=== PATIENT | female | born 1955 | race Caucasian/White ===

== ENCOUNTER → 2017-05-26 | Outpatient (CLI) | payer OTHER ==
[~2017-05-26] MED LIST: BIAXIN500 MG PO; CALCIUM600 M2; CENTRUM SILVER; CLARITIN10 MG PO; CRESTOR5 MG; DAYPRO600 M1 PO; DIOVAN320 MG; FISH OIL 10001000 MG; LEVOTHYROXIN; LYRICA50 MG; MAGNESIUM250 MG; PRAVASTATIN SOD40 MG PO; ROBAXIN750 MG PO; VITAMIN E
== END | disposition home or self-care (01) ==
LOC: MRI 05-24 08:00
DX: G89.29 Other chronic pain (principal); R51 Headache; R26.89 Other abnormalities of gait and mobility; H93.13 Tinnitus, bilateral; I10 Essential (primary) hypertension

== ENCOUNTER → 2017-06-10 | Outpatient (CLI) | payer OTHER | END | disposition home or self-care (01) | LOC: US 12:42 | DX: R09.89 Other specified symptoms and signs involving the circulatory and respiratory systems (principal) ==

== ENCOUNTER → 2017-06-22 | Outpatient (CLI) | payer OTHER | END | disposition home or self-care (01) | LOC: CARD 14:00 | DX: R06.02 Shortness of breath (principal) ==

== ENCOUNTER → 2018-07-20 | Outpatient (CLI) | payer OTHER | END | disposition home or self-care (01) | LOC: CT 07-12 10:00 → LAB 07:25 → CT 08:00 | DX: J44.9 Chronic obstructive pulmonary disease, unspecified (principal); I25.10 Atherosclerotic heart disease of native coronary artery without angina pectoris ==

== ENCOUNTER → 2019-10-09 | Outpatient (CLI) | payer OTHER, MEDICARE | END | disposition home or self-care (01) | LOC: RESCLI 03:48 | DX: J42 Unspecified chronic bronchitis (principal); C96.6 Unifocal Langerhans-cell histiocytosis; K21.9 Gastro-esophageal reflux disease without esophagitis; E78.5 Hyperlipidemia, unspecified; I10 Essential (primary) hypertension; E03.9 Hypothyroidism, unspecified; Z76.89 Persons encountering health services in other specified circumstances; Z79.899 Other long term (current) drug therapy; Z90.89 Acquired absence of other organs; Z88.0 Allergy status to penicillin ==

== ENCOUNTER → 2020-07-03 | Outpatient (CLI) | payer MEDICARE | END | disposition home or self-care (01) | LOC: RESCLI 02:08 | PROVIDERS: ATTEND Emergency Medicine | DX: J42 Unspecified chronic bronchitis (principal); E03.9 Hypothyroidism, unspecified; I10 Essential (primary) hypertension; K21.9 Gastro-esophageal reflux disease without esophagitis; M54.5 Low back pain; E78.5 Hyperlipidemia, unspecified; J30.2 Other seasonal allergic rhinitis; Z12.31 Encounter for screening mammogram for malignant neoplasm of breast; Z12.4 Encounter for screening for malignant neoplasm of cervix; Z12.11 Encounter for screening for malignant neoplasm of colon; Z00.00 Encounter for general adult medical examination without abnormal findings; Z79.899 Other long term (current) drug therapy; Z98.890 Other specified postprocedural states; Z87.891 Personal history of nicotine dependence; Z88.0 Allergy status to penicillin ==

== ENCOUNTER → 2020-07-31 | Outpatient (CLI) | payer MEDICARE | END | disposition home or self-care (01) | LOC: MAMMO 07-18 10:30 | PROVIDERS: ATTEND Student in an Organized Health Care Education/Training Program | DX: Z12.31 Encounter for screening mammogram for malignant neoplasm of breast (principal) ==

== ENCOUNTER → 2020-10-16 | Outpatient (CLI) | payer MEDICARE | END | disposition home or self-care (01) | LOC: RESCLI 00:23 | PROVIDERS: ATTEND Emergency Medicine | DX: J42 Unspecified chronic bronchitis (principal); E03.9 Hypothyroidism, unspecified; I10 Essential (primary) hypertension; K21.9 Gastro-esophageal reflux disease without esophagitis; J30.2 Other seasonal allergic rhinitis; E78.5 Hyperlipidemia, unspecified; M54.5 Low back pain ==

== ENCOUNTER → 2021-11-03 | Outpatient (CLI) | payer OTHER | END | disposition home or self-care (01) | LOC: RESCLI 11:55 | PROVIDERS: ATTEND Internal Medicine Nephrology | DX: J20.9 Acute bronchitis, unspecified (principal); J42 Unspecified chronic bronchitis; Z79.899 Other long term (current) drug therapy ==

== ENCOUNTER → 2021-11-14 | Outpatient (CLI) | payer OTHER | END | disposition home or self-care (01) | LOC: RESCLI 02:32 | PROVIDERS: ATTEND Internal Medicine | DX: J42 Unspecified chronic bronchitis (principal); E03.9 Hypothyroidism, unspecified; E78.5 Hyperlipidemia, unspecified; I10 Essential (primary) hypertension; M54.59 Other low back pain; J30.2 Other seasonal allergic rhinitis; K21.9 Gastro-esophageal reflux disease without esophagitis; Z88.0 Allergy status to penicillin; Z79.899 Other long term (current) drug therapy ==

== ENCOUNTER → 2022-02-12 | Outpatient (CLI) | payer MEDICARE ==
[2022-02-12 08:41] LABS: HEMATOCRIT 47.5 % (37.0-47.0); MEAN CELL VOLUME 92.1 fl (81.0-99.0); MEAN CORPUSCULAR HGB 29.7 pg (27.0-31.0); MEAN CORPUSCULAR HGB CONC 32.2 g/dl (33.0-37.0); MEAN PLATELET VOLUME 8.4 fl (9.6-12.3); PLATELET COUNT AUTOMATED 423 10*3/uL (130-400); RED BLOOD COUNT 5.16 10*6/uL (4.10-5.10); RED CELL DISTRI WIDTH 12.8 % (0-14.5); WHITE BLOOD COUNT 14.9 10*3/uL (4.8-10.8)
[2022-02-12 09:06] LABS: MANUAL DIFF REFLEX YES
[2022-02-12 09:21] LABS: PLATELET SUFFICIENCY HIGH (NORMAL); TOTAL CELLS COUNTED 100 #CELLS
[2022-02-12 09:25] LABS: BUN 23 mg/dl (7-24); CHLORIDE 102 mmol/L (98-107); POTASSIUM 4.3 mmol/L (3.5-5.1); SGPT/ALT 60 U/L (12-78); SODIUM 136 mmol/L (136-145)
[2022-02-12 09:31] LABS: VITAMIN D, 25-HYDROXY 62.3 ng/mL (30-100)
[2022-02-12 09:37] LABS: ALKALINE PHOSPHATASE 67 U/L (45-117); CHOLESTEROL 176 mg/dL (<200); CREATININE 0.74 mg/dL (0.55-1.02); LDL CHOLESTEROL 97 mg/dL (9-159); SGOT/AST 19 IU/L (3-35); TOTAL PROTEIN 8.1 gm/dL (6.4-8.2); TRIGLYCERIDES 133 mg/dl (<150)
== END | disposition home or self-care (01) ==
LOC: LAB 07:54
PROVIDERS: Internal Medicine; ATTEND Internal Medicine
DX: E03.9 Hypothyroidism, unspecified (principal); E78.5 Hyperlipidemia, unspecified; Z79.899 Other long term (current) drug therapy

== ENCOUNTER → 2022-03-20 | Outpatient (CLI) | payer MEDICARE | END | disposition home or self-care (01) | LOC: RESCLI 00:42 | PROVIDERS: ATTEND Internal Medicine | DX: C96.6 Unifocal Langerhans-cell histiocytosis (principal); K21.9 Gastro-esophageal reflux disease without esophagitis; I10 Essential (primary) hypertension; E78.5 Hyperlipidemia, unspecified; J44.9 Chronic obstructive pulmonary disease, unspecified; E03.9 Hypothyroidism, unspecified; J30.2 Other seasonal allergic rhinitis; G89.29 Other chronic pain; Z79.899 Other long term (current) drug therapy; Z98.890 Other specified postprocedural states; Z88.0 Allergy status to penicillin ==

== ENCOUNTER → 2022-03-26 | Outpatient (CLI) | payer MEDICARE | END | disposition home or self-care (01) | LOC: CT 01:15 | PROVIDERS: ATTEND Family Medicine | DX: J43.9 Emphysema, unspecified (principal); J40 Bronchitis, not specified as acute or chronic; I25.10 Atherosclerotic heart disease of native coronary artery without angina pectoris; J47.9 Bronchiectasis, uncomplicated; K76.0 Fatty (change of) liver, not elsewhere classified; Z87.891 Personal history of nicotine dependence ==

== ENCOUNTER 2022-06-15 17:17 | Emergency (ER) | payer MEDICARE ==
[~2022-06-15] VITALS: Ht 162.5 cm; Wt 63.5 kg
[2022-06-15 18:23] LABS: BASO # 0.1 10*3/uL (0.0-0.1); BASO % 0.8 % (0.0-1.0); EOS # 0.4 10*3/uL (0.0-0.4); EOS % 4.9 % (1.0-4.0); HEMATOCRIT 42.3 % (37.0-47.0); LYMPH # 1.6 10*3/uL (1.3-4.4); LYMPH % 21.2 % (27.0-41.0); MEAN CELL VOLUME 92.6 fl (81.0-99.0); MEAN CORPUSCULAR HGB CONC 32.4 g/dl (33.0-37.0); MEAN PLATELET VOLUME 8.9 fl (9.6-12.3); MONO # 0.7 10*3/uL (0.1-1.0); MONO % 9.5 % (3.0-9.0); NEUT # 4.8 10*3/uL (2.3-7.9); NEUT % 63.3 % (47.0-73.0); PLATELET COUNT AUTOMATED 317 10*3/uL (130-400); RED BLOOD COUNT 4.57 10*6/uL (4.10-5.10); RED CELL DISTRI WIDTH 14.3 % (0-14.5); WHITE BLOOD COUNT 7.6 10*3/uL (4.8-10.8)
[2022-06-15] MEDS ORDERED: PREDNISONE10 MG PO (18:37)
[2022-06-15 18:51] LABS: ALKALINE PHOSPHATASE 67 U/L (45-117); BUN 15 mg/dl (7-24); CHLORIDE 108 mmol/L (98-107); CREATININE 0.72 mg/dL (0.55-1.02); POTASSIUM 3.6 mmol/L (3.5-5.1); SGOT/AST 53 IU/L (3-35); SGPT/ALT 64 U/L (12-78); SODIUM 139 mmol/L (136-145); TOTAL PROTEIN 7.6 gm/dL (6.4-8.2)
[2022-06-15] MEDS ORDERED: PREDNISONE10 M1 PO (19:40)
[2022-06-15] MEDS ORDERED: VIBRAMYCIN100 MG PO (19:40)
== END 2022-06-15 19:56 | disposition home or self-care (01) ==
LOC: ED 17:17
PROVIDERS: Emergency Medicine
DX: L23.9 Allergic contact dermatitis, unspecified cause (principal); Z88.0 Allergy status to penicillin; Z79.899 Other long term (current) drug therapy

== ENCOUNTER → 2022-11-05 | Outpatient (CLI) | payer MEDICARE ==
[~2022-11-05] MED LIST changes: +PREDNISONE10 M1 PO; +PREDNISONE10 MG PO; +VIBRAMYCIN100 MG PO
[2022-11-05 10:40] LABS: HEMATOCRIT 44.4 % (37.0-47.0); MEAN CELL VOLUME 94.5 fl (81.0-99.0); MEAN CORPUSCULAR HGB 30.6 pg (27.0-31.0); MEAN CORPUSCULAR HGB CONC 32.4 g/dl (33.0-37.0); MEAN PLATELET VOLUME 8.8 fl (9.6-12.3); RED BLOOD COUNT 4.7 10*6/uL (4.10-5.10); WHITE BLOOD COUNT 7.6 10*3/uL (4.8-10.8)
[2022-11-05 11:01] LABS: ALKALINE PHOSPHATASE 60 U/L (46-116); BUN 15 mg/dl (9-23); CHLORIDE 104 mmol/L (98-107); CHOLESTEROL 185 mg/dL (<200); FREE T4 1.05 ng/dl (0.89-1.76); LDL CHOLESTEROL 104 mg/dL (9-159); SGPT/ALT 59 U/L (10-49); TOTAL PROTEIN 7.2 gm/dL (6.0-8.0); TRIGLYCERIDES 176 mg/dl (<150)
[2022-11-05 11:30] LABS: VITAMIN D, 25-HYDROXY 61.3 ng/mL (30-100)
== END | disposition home or self-care (01) ==
LOC: LAB 10:10
PROVIDERS: ATTEND Family Medicine
DX: I12.0 Hypertensive chronic kidney disease with stage 5 chronic kidney disease or end stage renal disease (principal); E11.22 Type 2 diabetes mellitus with diabetic chronic kidney disease; N18.6 End stage renal disease; E03.9 Hypothyroidism, unspecified

== ENCOUNTER → 2022-11-24 | Outpatient (CLI) | payer MEDICARE ==
[~2022-11-24] MED LIST changes: +AMLODIPINE BESY10 MG PO; +CELEBREX100 MG PO; +LEVOFLOXACIN500 MG PO; +MONTELUKAST SOD10 MG PO; +OMEPRAZOLE40 MG PO; +ROSUVASTATIN CA10 MG PO; +SYMB160 INH; +UNITHROID25 MCG PO; +Ventolin 02.5 MG/3 M INH
== END | disposition home or self-care (01) ==
LOC: RAD 13:54
PROVIDERS: ATTEND Family Medicine
DX: J44.9 Chronic obstructive pulmonary disease, unspecified (principal)

== ENCOUNTER 2022-11-25 21:21 | Inpatient (IN) | payer MEDICARE ==
[~2022-11-25] VITALS: Ht 162.6 cm; Wt 64.0 kg
[~2022-11-25 21:21] MED LIST changes: -AMLODIPINE BESY10 MG PO; -CELEBREX100 MG PO; -LEVOFLOXACIN500 MG PO; -MONTELUKAST SOD10 MG PO; -OMEPRAZOLE40 MG PO; -ROSUVASTATIN CA10 MG PO; -SYMB160 INH; -UNITHROID25 MCG PO; -Ventolin 02.5 MG/3 M INH
[2022-11-25 21:29] VITALS: BP 154/67
[2022-11-25 22:20] LABS: HEMATOCRIT 37.2 % (37.0-47.0); LYMPH # 0.4 10*3/uL (1.3-4.4); LYMPH % 17.5 % (27.0-41.0); MEAN CELL VOLUME 94.2 fl (81.0-99.0); MEAN CORPUSCULAR HGB 30.1 pg (27.0-31.0); MONO # 0.2 10*3/uL (0.1-1.0); MONO % 7.4 % (3.0-9.0); NEUT # 1.6 10*3/uL (2.3-7.9); NEUT % 74.6 % (47.0-73.0); PLATELET COUNT AUTOMATED 235 10*3/uL (130-400); RED BLOOD COUNT 3.95 10*6/uL (4.10-5.10); RED CELL DISTRI WIDTH 13.2 % (0-14.5); WHITE BLOOD COUNT 2.2 10*3/uL (4.8-10.8)
[2022-11-25 22:36] LABS: ALKALINE PHOSPHATASE 60 U/L (46-116); BUN 14 mg/dl (9-23); CHLORIDE 105 mmol/L (98-107); POTASSIUM 3.9 mmol/L (3.4-5.1); SGPT/ALT 49 U/L (10-49); TOTAL PROTEIN 6.6 gm/dL (6.0-8.0)
[2022-11-25 23:13] LABS: BILIRUBIN Negative (Negative); BLOOD Trace-Lysed (Negative); CLARITY Clear (Clear); COLOR Yellow (Yellow); GLUCOSE Negative (Negative); KETONE Negative (Negative); LEUKO ESTERASE Negative (Negative); NITRITE Negative (Negative); UROBILINOGEN 0.2 E.U./dl (0.0-1.0)
[2022-11-25 23:26] LABS: RBC 0-2 rbc/hpf (0-2); WBC 0-2 wbc/hpf (0-5)
[2022-11-25 23:27] LABS: BACTERIA TRACE
[2022-11-26 03:43] VITALS: BP 130/68
[2022-11-26 05:00] VITALS: BP 153/75
[2022-11-26 08:00] VITALS: BP 154/64
[2022-11-26] MEDS ORDERED: MONTELUKAST SOD10 MG PO (08:43)
[2022-11-26] MEDS ORDERED: OMEPRAZOLE40 MG PO (08:44)
[2022-11-26] MEDS ORDERED: SYMB160 INH (08:50)
[2022-11-26] MEDS ORDERED: Ventolin 02.5 MG/3 M INH (08:51)
[2022-11-26] MEDS ORDERED: ROSUVASTATIN CA10 MG PO (08:52)
[2022-11-26] MEDS ORDERED: AMLODIPINE BESY10 MG PO (08:53)
[2022-11-26] MEDS ORDERED: CELEBREX100 MG PO (08:54)
[2022-11-26] MEDS ORDERED: UNITHROID25 MCG PO (08:55)
[2022-11-26] MEDS ORDERED: LEVOFLOXACIN500 MG PO (08:55)
[2022-11-26 10:52] LABS: ABG BASE EXCESS 2.7 mmol/L (-2.0-2.0); ARTERIAL BLOOD GAS PH 7.466 (7.35-7.45); ARTERIAL BLOOD GAS PO2 62.7 (80-90)
[2022-11-26 12:00] VITALS: BP 150/77
[2022-11-26 16:00] VITALS: BP 140/79
[2022-11-26 20:00] VITALS: BP 154/68
[2022-11-27] VITALS: BP 164/85
[2022-11-27 06:30] LABS: HEMATOCRIT 37.1 % (37.0-47.0); MEAN CELL VOLUME 96.9 fl (81.0-99.0); MEAN CORPUSCULAR HGB 30.5 pg (27.0-31.0); MEAN CORPUSCULAR HGB CONC 31.5 g/dl (33.0-37.0); MEAN PLATELET VOLUME 9.3 fl (9.6-12.3); PLATELET COUNT AUTOMATED 216 10*3/uL (130-400); RED BLOOD COUNT 3.83 10*6/uL (4.10-5.10); RED CELL DISTRI WIDTH 13.5 % (0-14.5); WHITE BLOOD COUNT 3.3 10*3/uL (4.8-10.8)
[2022-11-27 06:34] LABS: MANUAL DIFF REFLEX YES
[2022-11-27 07:06] LABS: PLATELET SUFFICIENCY NORMAL (NORMAL); TOTAL CELLS COUNTED 100 #CELLS
[2022-11-27 08:00] VITALS: BP 138/69
[2022-11-27 12:00] VITALS: BP 130/60
[2022-11-27 12:20] LABS: VITAMIN D, 25-HYDROXY 64.4 ng/mL (30-100)
[2022-11-27 20:00] VITALS: BP 130/57
[2022-11-28] VITALS: BP 145/58
[2022-11-28 08:00] VITALS: BP 127/71
[2022-11-28 13:27] LABS: HEMATOCRIT 39.6 % (37.0-47.0); MEAN CELL VOLUME 94.1 fl (81.0-99.0); MEAN CORPUSCULAR HGB 30.9 pg (27.0-31.0); MEAN CORPUSCULAR HGB CONC 32.8 g/dl (33.0-37.0); MEAN PLATELET VOLUME 9.1 fl (9.6-12.3); PLATELET COUNT AUTOMATED 212 10*3/uL (130-400); RED BLOOD COUNT 4.21 10*6/uL (4.10-5.10); RED CELL DISTRI WIDTH 13.2 % (0-14.5); WHITE BLOOD COUNT 4.2 10*3/uL (4.8-10.8)
[2022-11-28 13:31] LABS: MANUAL DIFF REFLEX YES
[2022-11-28 13:47] LABS: ALKALINE PHOSPHATASE 52 U/L (46-116); BUN 17 mg/dl (9-23); CHLORIDE 100 mmol/L (98-107); POTASSIUM 3.5 mmol/L (3.4-5.1); SGPT/ALT 41 U/L (10-49); TOTAL PROTEIN 6.6 gm/dL (6.0-8.0)
[2022-11-28 13:48] LABS: ATYPICAL LYMPHS 11 % (0-0); PLATELET SUFFICIENCY NORMAL (NORMAL); POLYCHROMASIA SLIGHT; TOTAL CELLS COUNTED 100 #CELLS; TOXIC GRANULATION SLIGHT; VACUOLATION OF NEUTROPHILS SLIGHT
[2022-11-28 13:49] LABS: OVALOCYTES FEW
[2022-11-28 16:00] VITALS: BP 98/74
[2022-11-28 20:00] VITALS: BP 126/64
[2022-11-29] VITALS: BP 113/75
[2022-11-29 06:13] LABS: ALKALINE PHOSPHATASE 51 U/L (46-116); BUN 17 mg/dl (9-23); CHLORIDE 102 mmol/L (98-107); POTASSIUM 4.3 mmol/L (3.4-5.1); SGPT/ALT 41 U/L (10-49); TOTAL PROTEIN 6.5 gm/dL (6.0-8.0)
[2022-11-29 06:23] LABS: MEAN CELL VOLUME 95.7 fl (81.0-99.0); MEAN CORPUSCULAR HGB 29.7 pg (27.0-31.0); MEAN PLATELET VOLUME 9.7 fl (9.6-12.3); PLATELET COUNT AUTOMATED 172 10*3/uL (130-400); RED BLOOD COUNT 4.18 10*6/uL (4.10-5.10); RED CELL DISTRI WIDTH 13.2 % (0-14.5); WHITE BLOOD COUNT 3.8 10*3/uL (4.8-10.8)
[2022-11-29 06:33] LABS: MANUAL DIFF REFLEX YES
[2022-11-29 07:00] LABS: ATYPICAL LYMPHS 9 % (0-0); BURR CELLS FEW; OVALOCYTES FEW; POLYCHROMASIA SLIGHT; TOTAL CELLS COUNTED 100 #CELLS
[2022-11-29 07:01] LABS: PLATELET SUFFICIENCY NORMAL (NORMAL); TOXIC GRANULATION SLIGHT
[2022-11-29 08:00] VITALS: BP 138/70
[2022-11-29 12:00] VITALS: BP 135/55
[2022-11-29 16:00] VITALS: BP 149/73
[2022-11-29 20:00] VITALS: BP 130/48
[2022-11-30] VITALS: BP 128/70
[2022-11-30 06:24] LABS: HEMATOCRIT 43.8 % (37.0-47.0); MEAN CELL VOLUME 94.2 fl (81.0-99.0); MEAN CORPUSCULAR HGB 29.9 pg (27.0-31.0); MEAN CORPUSCULAR HGB CONC 31.7 g/dl (33.0-37.0); MEAN PLATELET VOLUME 9.2 fl (9.6-12.3); RED BLOOD COUNT 4.65 10*6/uL (4.10-5.10); RED CELL DISTRI WIDTH 13.1 % (0-14.5); WHITE BLOOD COUNT 9.3 10*3/uL (4.8-10.8)
[2022-11-30 06:30] LABS: MANUAL DIFF REFLEX YES
[2022-11-30 06:36] LABS: ALKALINE PHOSPHATASE 54 U/L (46-116); BUN 21 mg/dl (9-23); CHLORIDE 100 mmol/L (98-107); POTASSIUM 3.6 mmol/L (3.4-5.1); SGPT/ALT 54 U/L (10-49); TOTAL PROTEIN 6.9 gm/dL (6.0-8.0)
[2022-11-30 07:13] LABS: PLATELET COUNT AUTOMATED 231 10*3/uL (130-400)
[2022-11-30 07:18] LABS: PLATELET SUFFICIENCY NORMAL (NORMAL); TOTAL CELLS COUNTED 100 #CELLS
[2022-11-30 08:00] VITALS: BP 145/74
[2022-11-30 12:00] VITALS: BP 136/76
[2022-11-30 16:00] VITALS: BP 140/72
[2022-11-30 20:00] VITALS: BP 148/67
[2022-12-01] VITALS: BP 145/61
[2022-12-01 06:53] LABS: HEMATOCRIT 43.4 % (37.0-47.0); MEAN CELL VOLUME 96.2 fl (81.0-99.0); MEAN CORPUSCULAR HGB 29.9 pg (27.0-31.0); MEAN CORPUSCULAR HGB CONC 31.1 g/dl (33.0-37.0); MEAN PLATELET VOLUME 9.1 fl (9.6-12.3); PLATELET COUNT AUTOMATED 249 10*3/uL (130-400); RED BLOOD COUNT 4.51 10*6/uL (4.10-5.10); RED CELL DISTRI WIDTH 13.1 % (0-14.5); WHITE BLOOD COUNT 12.2 10*3/uL (4.8-10.8)
[2022-12-01 06:57] LABS: MANUAL DIFF REFLEX YES
[2022-12-01 07:26] LABS: TOTAL CELLS COUNTED 100 #CELLS
[2022-12-01 07:27] LABS: PLATELET SUFFICIENCY NORMAL (NORMAL)
[2022-12-01 08:00] VITALS: BP 130/76
[2022-12-01 08:20] LABS: ALKALINE PHOSPHATASE 51 U/L (46-116); BUN 22 mg/dl (9-23); CHLORIDE 98 mmol/L (98-107); POTASSIUM 3.7 mmol/L (3.4-5.1); SGPT/ALT 61 U/L (10-49); TOTAL PROTEIN 6.5 gm/dL (6.0-8.0)
[2022-12-01] MEDS ORDERED: RIVASTIGMINE TAR3 M1 PO (10:48)
[2022-12-01] MEDS ORDERED: NAMENDA-5 PO (10:48)
[2022-12-01 12:00] VITALS: BP 128/72
[2022-12-01 16:00] VITALS: BP 131/70
[2022-12-01 17:40] VITALS: BP 148/82
[2022-12-01 20:00] VITALS: BP 113/85
[2022-12-02] VITALS: BP 121/86
[2022-12-02 08:00] VITALS: BP 133/59
[2022-12-02 12:00] VITALS: BP 130/59
== END 2022-12-02 15:18 | disposition home health service (06) | DRG 193 ==
LOC: ED 21:21 → EDHOLD 11-26 03:31 → 4E 11-26 03:31
PROVIDERS: Counselor Professional; Emergency Medicine; Internal Medicine Critical Care Medicine; ADMIT Internal Medicine; ATTEND Internal Medicine
DX: J10.1 Influenza due to other identified influenza virus with other respiratory manifestations (principal); J96.00 Acute respiratory failure, unspecified whether with hypoxia or hypercapnia; J44.1 Chronic obstructive pulmonary disease with (acute) exacerbation; Z20.822 Contact with and (suspected) exposure to COVID-19; E03.9 Hypothyroidism, unspecified; E78.2 Mixed hyperlipidemia; K76.0 Fatty (change of) liver, not elsewhere classified; F41.9 Anxiety disorder, unspecified; R41.9 Unspecified symptoms and signs involving cognitive functions and awareness; R41.0 Disorientation, unspecified; I10 Essential (primary) hypertension; S61.511A Laceration without foreign body of right wrist, initial encounter; X58.XXXA Exposure to other specified factors, initial encounter; G30.1 Alzheimer's disease with late onset; F02.80 Dementia in other diseases classified elsewhere, unspecified severity, without behavioral disturbance, psychotic disturbance, mood disturbance, and anxiety; K21.00 Gastro-esophageal reflux disease with esophagitis, without bleeding; Z88.0 Allergy status to penicillin; Z92.21 Personal history of antineoplastic chemotherapy; Z85.118 Personal history of other malignant neoplasm of bronchus and lung; Y93.89 Activity, other specified; Y92.89 Other specified places as the place of occurrence of the external cause; Y99.8 Other external cause status

== ENCOUNTER → 2022-12-24 | Outpatient (CLI) | payer MEDICARE ==
[~2022-12-24] MED LIST changes: +AMLODIPINE BESY10 MG PO; +CELEBREX100 MG PO; +LEVOFLOXACIN500 MG PO; +MONTELUKAST SOD10 MG PO; +NAMENDA-5 PO; +OMEPRAZOLE40 MG PO; +RIVASTIGMINE TAR3 M1 PO; +ROSUVASTATIN CA10 MG PO; +SYMB160 INH; +UNITHROID25 MCG PO; +Ventolin 02.5 MG/3 M INH
[2022-12-24 15:38] LABS: THYROID STIM HORMONE (HS) 2.364 uIU/ml (0.550-4.780)
[2022-12-25 07:06] LABS: HBSAG Negative (Negative); HEP B CORE AB, IGM Negative (Negative); HEPATITIS C ANTIBODY Non Reactive (Non Reactive)
== END | disposition home or self-care (01) ==
LOC: LAB 14:43
PROVIDERS: ATTEND Family Medicine
DX: J44.9 Chronic obstructive pulmonary disease, unspecified (principal); D41.9 Neoplasm of uncertain behavior of unspecified urinary organ; M25.50 Pain in unspecified joint; R53.83 Other fatigue

== ENCOUNTER → 2023-01-22 | Outpatient (CLI) | payer MEDICARE | END | disposition home or self-care (01) | LOC: MRI 01-14 13:00 | PROVIDERS: ATTEND Family Medicine | DX: I67.82 Cerebral ischemia (principal); R41.82 Altered mental status, unspecified; F03.90 Unspecified dementia, unspecified severity, without behavioral disturbance, psychotic disturbance, mood disturbance, and anxiety; E78.00 Pure hypercholesterolemia, unspecified; K21.9 Gastro-esophageal reflux disease without esophagitis; R41.840 Attention and concentration deficit; J31.0 Chronic rhinitis ==

== ENCOUNTER → 2023-04-14 | Outpatient (CLI) | payer MEDICARE | END | disposition home or self-care (01) | LOC: MAMMO 04-07 11:00 | PROVIDERS: ATTEND Family Medicine | DX: Z12.31 Encounter for screening mammogram for malignant neoplasm of breast (principal) ==

== ENCOUNTER → 2023-05-06 | Outpatient (CLI) | payer MEDICARE ==
[2023-05-06 08:51] LABS: BASO % 0.7 % (0.0-1.0); EOS # 0.5 10*3/uL (0.0-0.4); EOS % 8.5 % (1.0-4.0); HEMATOCRIT 40.4 % (37.0-47.0); LYMPH # 1.6 10*3/uL (1.3-4.4); LYMPH % 27.6 % (27.0-41.0); MEAN CORPUSCULAR HGB 28.5 pg (27.0-31.0); MEAN CORPUSCULAR HGB CONC 30.9 g/dl (33.0-37.0); MEAN PLATELET VOLUME 8.8 fl (9.6-12.3); MONO # 0.6 10*3/uL (0.1-1.0); MONO % 10.5 % (3.0-9.0); NEUT # 2.9 10*3/uL (2.3-7.9); NEUT % 52.3 % (47.0-73.0); PLATELET COUNT AUTOMATED 151 10*3/uL (130-400); RED BLOOD COUNT 4.39 10*6/uL (4.10-5.10); RED CELL DISTRI WIDTH 14.7 % (0-14.5); WHITE BLOOD COUNT 5.6 10*3/uL (4.8-10.8)
[2023-05-06 09:19] LABS: ALKALINE PHOSPHATASE 59 U/L (46-116); BUN 12 mg/dl (9-23); CHLORIDE 107 mmol/L (98-107); CHOLESTEROL 156 mg/dL (<200); CPK 45 U/L (34-171); LDL CHOLESTEROL 84 mg/dL (9-159); POTASSIUM 4.3 mmol/L (3.4-5.1); SGPT/ALT 44 U/L (10-49); TOTAL PROTEIN 6.6 gm/dL (6.0-8.0); TRIGLYCERIDES 129 mg/dl (<150)
== END | disposition home or self-care (01) ==
LOC: LAB 08:26
PROVIDERS: ATTEND Family Medicine
DX: E78.00 Pure hypercholesterolemia, unspecified (principal); E55.9 Vitamin D deficiency, unspecified; Z79.899 Other long term (current) drug therapy

== ENCOUNTER → 2023-05-13 | Outpatient (CLI) | payer MEDICARE ==
[2023-05-13 11:07] LABS: ALKALINE PHOSPHATASE 72 U/L (46-116); SGPT/ALT 47 U/L (10-49); TOTAL PROTEIN 7.1 gm/dL (6.0-8.0)
[2023-05-19 13:07] LABS: METHYLMALONIC ACID 202 nmol/L (0-378)
== END | disposition home or self-care (01) ==
LOC: LAB 10:02
PROVIDERS: ATTEND Psychiatry & Neurology Neurology
DX: Z11.3 Encounter for screening for infections with a predominantly sexual mode of transmission (principal); F03.B11 Unspecified dementia, moderate, with agitation; I10 Essential (primary) hypertension; E78.00 Pure hypercholesterolemia, unspecified; Z79.899 Other long term (current) drug therapy

== ENCOUNTER → 2023-06-17 | Outpatient (CLI) | payer MEDICARE | END | disposition home or self-care (01) | LOC: RESCLI 00:44 | PROVIDERS: ATTEND Internal Medicine | DX: J42 Unspecified chronic bronchitis (principal); K21.9 Gastro-esophageal reflux disease without esophagitis; E78.5 Hyperlipidemia, unspecified; E03.9 Hypothyroidism, unspecified; I10 Essential (primary) hypertension; C96.6 Unifocal Langerhans-cell histiocytosis; G89.29 Other chronic pain; R41.81 Age-related cognitive decline; Z98.890 Other specified postprocedural states; Z88.0 Allergy status to penicillin; Z79.899 Other long term (current) drug therapy ==

== ENCOUNTER → 2023-08-24 | Outpatient (CLI) | payer MEDICARE ==
[2023-08-24 14:15] LABS: FREE T4 0.95 ng/dl (0.89-1.76)
== END | disposition home or self-care (01) ==
LOC: LAB 08-20 01:38
PROVIDERS: ATTEND Family Medicine
DX: R53.83 Other fatigue (principal); E03.9 Hypothyroidism, unspecified; M54.50 Low back pain, unspecified

== ENCOUNTER 2023-08-29 15:42 | Emergency (ER) | payer MEDICARE ==
[~2023-08-29] VITALS: Ht 162.5 cm; Wt 74.8 kg
[2023-08-29 16:44] LABS: BASO # 0.1 10*3/uL (0.0-0.1); BASO % 0.6 % (0.0-1.0); EOS % 12.2 % (1.0-4.0); HEMATOCRIT 37.9 % (37.0-47.0); LYMPH # 1.8 10*3/uL (1.3-4.4); LYMPH % 22.4 % (27.0-41.0); MEAN CELL VOLUME 92.4 fl (81.0-99.0); MEAN CORPUSCULAR HGB 30.2 pg (27.0-31.0); MEAN CORPUSCULAR HGB CONC 32.7 g/dl (33.0-37.0); MEAN PLATELET VOLUME 8.7 fl (9.6-12.3); MONO # 1.2 10*3/uL (0.1-1.0); MONO % 15.5 % (3.0-9.0); NEUT # 3.9 10*3/uL (2.3-7.9); PLATELET COUNT AUTOMATED 240 10*3/uL (130-400); RED CELL DISTRI WIDTH 13.5 % (0-14.5); WHITE BLOOD COUNT 7.9 10*3/uL (4.8-10.8)
[2023-08-29 17:05] LABS: ALKALINE PHOSPHATASE 73 U/L (46-116); BUN 10 mg/dl (9-23); CHLORIDE 107 mmol/L (98-107); POTASSIUM 3.6 mmol/L (3.4-5.1); SGPT/ALT 30 U/L (5-49); TOTAL PROTEIN 6.3 gm/dL (6.0-8.0)
[2023-08-29 18:43] LABS: BILIRUBIN Negative (Negative); BLOOD Negative (Negative); CLARITY Clear (Clear); COLOR Yellow (Yellow); GLUCOSE Negative (Negative); KETONE Negative (Negative); LEUKO ESTERASE 1+ (Negative); NITRITE Negative (Negative); UROBILINOGEN 0.2 E.U./dl (0.0-1.0)
[2023-08-29 18:52] LABS: BACTERIA 2+
[2023-08-29 18:53] LABS: FINE GRANULAR CAST 0-2; HYALINE CAST 0-2
[2023-08-29] MEDS ORDERED: SEPTDS PO (19:08)
== END 2023-08-29 19:44 | disposition home or self-care (01) ==
LOC: ED 15:42
PROVIDERS: Family Medicine
DX: S01.412A Laceration without foreign body of left cheek and temporomandibular area, initial encounter (principal); N39.0 Urinary tract infection, site not specified; I10 Essential (primary) hypertension; F03.90 Unspecified dementia, unspecified severity, without behavioral disturbance, psychotic disturbance, mood disturbance, and anxiety; E78.5 Hyperlipidemia, unspecified; J44.9 Chronic obstructive pulmonary disease, unspecified; Z88.0 Allergy status to penicillin; Z98.890 Other specified postprocedural states; K21.9 Gastro-esophageal reflux disease without esophagitis; M19.90 Unspecified osteoarthritis, unspecified site; W06.XXXA Fall from bed, initial encounter; Y93.89 Activity, other specified; Y92.89 Other specified places as the place of occurrence of the external cause; Y99.8 Other external cause status

== ENCOUNTER → 2023-11-08 | Outpatient (CLI) | payer MEDICARE ==
[~2023-11-08] MED LIST changes: +SEPTDS PO
[2023-11-08 10:18] LABS: HEMATOCRIT 43.2 % (37.0-47.0); MEAN CELL VOLUME 95.6 fl (81.0-99.0); MEAN CORPUSCULAR HGB 28.8 pg (27.0-31.0); MEAN CORPUSCULAR HGB CONC 30.1 g/dl (33.0-37.0); MEAN PLATELET VOLUME 8.8 fl (9.6-12.3); RED BLOOD COUNT 4.52 10*6/uL (4.10-5.10); RED CELL DISTRI WIDTH 13.7 % (0-14.5); WHITE BLOOD COUNT 6.5 10*3/uL (4.8-10.8)
[2023-11-08 10:39] LABS: ALKALINE PHOSPHATASE 73 U/L (46-116); BUN 16 mg/dl (9-23); CHLORIDE 107 mmol/L (98-107); CHOLESTEROL 137 mg/dL (<200); LDL CHOLESTEROL 69 mg/dL (9-159); POTASSIUM 4.5 mmol/L (3.4-5.1); SGPT/ALT 28 U/L (5-49); TOTAL PROTEIN 6.8 gm/dL (6.0-8.0); TRIGLYCERIDES 141 mg/dl (<150)
== END ==
LOC: LAB 09:53
PROVIDERS: ATTEND Family Medicine
DX: E55.9 Vitamin D deficiency, unspecified (principal); E78.00 Pure hypercholesterolemia, unspecified

== ENCOUNTER 2024-02-10 14:04 | Inpatient (IN) | payer MEDICARE ==
[~2024-02-10] VITALS: Ht 162.5 cm; Wt 74.4 kg
[2024-02-10 14:20] VITALS: BP 95/78
[2024-02-10] MEDS ORDERED: Pantoprazole Sodium 40 MG VIAL IV ONE (14:30)
[2024-02-10] MEDS ORDERED: SODIUM CHLORIDE 0.9% 1,000 ML IV ONE (14:30)
[2024-02-10] MEDS ORDERED: IOHEXOL 300 MG/ML 100 ML VIAL IV ONE (14:45)
[2024-02-10] MEDS ORDERED: AMITRIPTYLINE25 MG PO (14:58)
[2024-02-10 14:59] LABS: BASO % 0.1 % (0.0-1.0); EOS % 0.1 % (1.0-4.0); HEMATOCRIT 37.2 % (37.0-47.0); LYMPH # 0.9 10*3/uL (1.3-4.4); LYMPH % 10.4 % (27.0-41.0); MEAN CELL VOLUME 94.9 fl (81.0-99.0); MEAN CORPUSCULAR HGB 29.8 pg (27.0-31.0); MEAN CORPUSCULAR HGB CONC 31.5 g/dl (33.0-37.0); MEAN PLATELET VOLUME 9.3 fl (9.6-12.3); MONO # 0.7 10*3/uL (0.1-1.0); MONO % 7.9 % (3.0-9.0); NEUT % 80.9 % (47.0-73.0); PLATELET COUNT AUTOMATED 227 10*3/uL (130-400); RED BLOOD COUNT 3.92 10*6/uL (4.10-5.10); RED CELL DISTRI WIDTH 13.6 % (0-14.5); WHITE BLOOD COUNT 8.6 10*3/uL (4.8-10.8)
[2024-02-10] MEDS ORDERED: INDOMETHACIN25 M1 PO (14:59)
[2024-02-10] MEDS ORDERED: LEXAPRO5 M1 PO (15:00)
[2024-02-10] MEDS ORDERED: NAMENDA-5 PO (15:00)
[2024-02-10] MEDS ORDERED: RISPERDAL0.5 MG PO (15:01)
[2024-02-10] MEDS ORDERED: ASPIRIN ADULT L81 M1 PO (15:06)
[2024-02-10] MEDS ORDERED: COZAAR25 M1 PO (15:07)
[2024-02-10] MEDS ORDERED: TOPROL XL25 MG PO (15:08)
[2024-02-10 15:10] LABS: ACT PARTIAL THROMBO TIME 27.6 SECONDS (20.0-32.1)
[2024-02-10 15:20] LABS: ALKALINE PHOSPHATASE 60 U/L (46-116); BUN 28 mg/dl (9-23); CHLORIDE 104 mmol/L (98-107); LIPASE 37 U/L (12-53); POTASSIUM 3.6 mmol/L (3.4-5.1); SGPT/ALT 21 U/L (5-49); TOTAL PROTEIN 6.4 gm/dL (6.0-8.0)
[2024-02-10 17:02] LABS: BILIRUBIN Negative (Negative); BLOOD Negative (Negative); CLARITY Cloudy (Clear); COLOR Yellow (Yellow); GLUCOSE Negative (Negative); KETONE Negative (Negative); NITRITE Negative (Negative); SPECIFIC GRAVITY >= 1.030 (1.001-1.030); UROBILINOGEN 0.2 E.U./dl (0.0-1.0)
[2024-02-10 17:10] LABS: LEUKO ESTERASE Trace (Negative)
[2024-02-10 17:11] LABS: BACTERIA 2+; EPITHELIAL CELLS 16-20; RBC 0-2 rbc/hpf (0-2)
[2024-02-10] MEDS ORDERED: Ceftriaxone Sodium 1 GM/10 ML SYR IV ONE (17:35)
[2024-02-10 18:15] VITALS: BP 134/89
[2024-02-10] MEDS ORDERED: Ondansetron Hydrochloride 4 MG/2 ML VIAL IV PRN (21:40)
[2024-02-10] MEDS ORDERED: SODIUM CHLORIDE 0.9% 1,000 ML IV SCH (21:40)
[2024-02-10] MEDS ORDERED: Albuterol Sulfate 2.5 MG/3 ML VIAL NEB SCH (21:55)
[2024-02-10] MEDS ORDERED: Memantine Hydrochloride 10 MG TAB PO SCH (22:00)
[2024-02-10] MEDS ORDERED: BUDESONIDE 0.5 MG AMP NEB SCH (22:00)
[2024-02-10] MEDS ORDERED: Amitriptyline Hydrochloride 25 MG TAB PO SCH (22:00)
[2024-02-10] MEDS ORDERED: RISPERIDONE 0.5 MG TAB PO SCH (22:00)
[2024-02-10 22:30] VITALS: BP 147/69
[2024-02-11 04:46] VITALS: BP 128/63
[2024-02-11 05:13] LABS: BUN 19 mg/dl (9-23); CHLORIDE 109 mmol/L (98-107); POTASSIUM 3.5 mmol/L (3.4-5.1)
[2024-02-11] MEDS ORDERED: Levothyroxine Sodium 25 MCG TAB PO SCH (06:00)
[2024-02-11] MEDS ORDERED: OMEPRAZOLE 20 MG CAP PO SCH (06:00)
[2024-02-11 06:44] LABS: BASO % 0.4 % (0.0-1.0); EOS # 0.2 10*3/uL (0.0-0.4); EOS % 2.2 % (1.0-4.0); LYMPH # 1.6 10*3/uL (1.3-4.4); LYMPH % 24.4 % (27.0-41.0); MEAN CELL VOLUME 97.2 fl (81.0-99.0); MEAN CORPUSCULAR HGB 30.7 pg (27.0-31.0); MEAN CORPUSCULAR HGB CONC 31.6 g/dl (33.0-37.0); MEAN PLATELET VOLUME 10.1 fl (9.6-12.3); MONO # 0.8 10*3/uL (0.1-1.0); MONO % 11.8 % (3.0-9.0); NEUT % 60.8 % (47.0-73.0); PLATELET COUNT AUTOMATED 185 10*3/uL (130-400); RED BLOOD COUNT 3.19 10*6/uL (4.10-5.10); RED CELL DISTRI WIDTH 13.5 % (0-14.5); WHITE BLOOD COUNT 6.7 10*3/uL (4.8-10.8)
[2024-02-11 07:48] VITALS: BP 117/65
[2024-02-11 09:50] VITALS: BP 119/96
[2024-02-11] MEDS ORDERED: Ceftriaxone Sodium 2 GM,IV 1 EA in SYRINGE INFUSION 20 ML IV SCH (10:00)
[2024-02-11] MEDS ORDERED: ASPIRIN, CHEWABLE 81 MG TAB PO SCH (10:00)
[2024-02-11] MEDS ORDERED: ESCITALOPRAM OXALATE 10 MG TAB PO SCH (10:00)
[2024-02-11] MEDS ORDERED: METOPROLOL SUCCINATE XR 25 MG TAB PO SCH (10:00)
[2024-02-11] MEDS ORDERED: CELECOXIB 200 MG CAP PO SCH (10:00)
[2024-02-11] MEDS ORDERED: Losartan Potassium 25 MG TAB PO SCH (10:00)
[2024-02-11] MEDS ORDERED: ACETAMINOPHEN 325 MG TAB PO PRN (10:45)
[2024-02-11 12:00] VITALS: BP 108/58
[2024-02-11] MEDS ORDERED: MORPHINE Sulfate 2 MG/ML SYR IV ONE (13:50)
[2024-02-11 16:21] VITALS: BP 115/65
[2024-02-11 19:34] VITALS: BP 107/55
[2024-02-12] VITALS: BP 112/67
[2024-02-12 07:05] LABS: BUN 12 mg/dl (9-23); CHLORIDE 110 mmol/L (98-107); POTASSIUM 3.5 mmol/L (3.4-5.1)
[2024-02-12 07:52] VITALS: BP 112/52
== END 2024-02-12 11:01 | disposition home or self-care (01) | DRG 392 ==
LOC: ED 14:04 → EDHOLD 18:26 → 5E 18:26 → EDHOLD 23:22 → 5E 02-11 08:49
PROVIDERS: Nurse Practitioner Family; ADMIT Internal Medicine; ATTEND Internal Medicine
DX: A08.4 Viral intestinal infection, unspecified (principal); N39.0 Urinary tract infection, site not specified; J44.1 Chronic obstructive pulmonary disease with (acute) exacerbation; K56.49 Other impaction of intestine; E86.0 Dehydration; I10 Essential (primary) hypertension; K29.70 Gastritis, unspecified, without bleeding; E03.9 Hypothyroidism, unspecified; G30.1 Alzheimer's disease with late onset; F02.80 Dementia in other diseases classified elsewhere, unspecified severity, without behavioral disturbance, psychotic disturbance, mood disturbance, and anxiety; Z88.0 Allergy status to penicillin

== ENCOUNTER → 2024-05-15 | Outpatient (CLI) | payer MEDICARE ==
[~2024-05-15] MED LIST changes: +AMITRIPTYLINE25 MG PO; +ASPIRIN ADULT L81 M1 PO; +COZAAR25 M1 PO; +INDOMETHACIN25 M1 PO; +LEXAPRO5 M1 PO; +RISPERDAL0.5 MG PO; +TOPROL XL25 MG PO
[2024-05-15 11:04] LABS: HEMATOCRIT 38.2 % (37.0-47.0); MEAN CELL VOLUME 83.4 fl (81.0-99.0); MEAN CORPUSCULAR HGB 24.7 pg (27.0-31.0); MEAN CORPUSCULAR HGB CONC 29.6 g/dl (33.0-37.0); RED BLOOD COUNT 4.58 10*6/uL (4.10-5.10); RED CELL DISTRI WIDTH 17.7 % (0-14.5); WHITE BLOOD COUNT 8.6 10*3/uL (4.8-10.8)
[2024-05-15 11:39] LABS: ALKALINE PHOSPHATASE 95 U/L (46-116); BUN 9 mg/dl (9-23); CHLORIDE 104 mmol/L (98-107); CHOLESTEROL 122 mg/dL (<200); CPK 26 U/L (34-171); LDL CHOLESTEROL 51 mg/dL (9-159); POTASSIUM 4.1 mmol/L (3.4-5.1); SGPT/ALT 19 U/L (5-49); TOTAL PROTEIN 7.4 gm/dL (6.0-8.0); TRIGLYCERIDES 180 mg/dl (<150)
[2024-05-15 11:40] LABS: VITAMIN D, 25-HYDROXY 46.7 ng/mL (30-100)
== END | disposition home or self-care (01) ==
LOC: LAB 10:38
PROVIDERS: ATTEND Family Medicine
DX: E78.00 Pure hypercholesterolemia, unspecified (principal); E55.9 Vitamin D deficiency, unspecified; R53.83 Other fatigue; Z79.899 Other long term (current) drug therapy

== ENCOUNTER 2024-06-07 10:09 | Inpatient (IN) | payer MEDICARE ==
[~2024-06-07] VITALS: Ht 162.5 cm; Wt 72.6 kg
[2024-06-07 10:20] VITALS: BP 104/52
[2024-06-07] MEDS ORDERED: MORPHINE Sulfate 2 MG/ML SYR IV ONE (10:50)
[2024-06-07] MEDS ORDERED: SODIUM CHLORIDE 0.9% 1,000 ML IV ONE (10:50)
[2024-06-07] MEDS ORDERED: ceFAZolin sodium 2 GM in SYRINGE INFUSION 20 ML IV ONE (10:50)
[2024-06-07 11:22] LABS: BASO % 0.5 % (0.0-1.0); EOS # 0.4 10*3/uL (0.0-0.4); EOS % 4.9 % (1.0-4.0); HEMATOCRIT 35.1 % (37.0-47.0); LYMPH # 1.1 10*3/uL (1.3-4.4); LYMPH % 13.5 % (27.0-41.0); MEAN CELL VOLUME 84.8 fl (81.0-99.0); MEAN CORPUSCULAR HGB 24.2 pg (27.0-31.0); MEAN CORPUSCULAR HGB CONC 28.5 g/dl (33.0-37.0); MEAN PLATELET VOLUME 8.8 fl (9.6-12.3); MONO # 0.8 10*3/uL (0.1-1.0); MONO % 9.4 % (3.0-9.0); NEUT # 5.8 10*3/uL (2.3-7.9); NEUT % 71.2 % (47.0-73.0); PLATELET COUNT AUTOMATED 238 10*3/uL (130-400); RED BLOOD COUNT 4.14 10*6/uL (4.10-5.10); RED CELL DISTRI WIDTH 17.8 % (0-14.5); WHITE BLOOD COUNT 8.2 10*3/uL (4.8-10.8)
[2024-06-07 11:39] LABS: ALKALINE PHOSPHATASE 81 U/L (46-116); BUN 10 mg/dl (9-23); CHLORIDE 105 mmol/L (98-107); SGPT/ALT 13 U/L (5-49); TOTAL PROTEIN 6.6 gm/dL (6.0-8.0)
[2024-06-07 11:42] LABS: ACT PARTIAL THROMBO TIME 25.4 SECONDS (20.0-32.1)
[2024-06-07] MEDS ORDERED: fentaNYL CITRATE 100 MCG/2 ML VIAL IV PRN (11:45)
[2024-06-07] MEDS ORDERED: ETOMIDATE 20 MG/10 ML VIAL IV ONE (11:45)
[2024-06-07] MEDS ORDERED: MUPIROCIN 15 GM TUBE T ONE (13:55)
[2024-06-07] MEDS ORDERED: fentaNYL CITRATE 100 MCG/2 ML VIAL IV ONE (14:45)
[2024-06-07] MEDS ORDERED: Albuterol Sulfate 2.5 MG/3 ML VIAL NEB SCH (16:30)
[2024-06-07] MEDS ORDERED: BUDESONIDE 0.5 MG AMP NEB SCH (16:30)
[2024-06-07] MEDS ORDERED: ACETAMINOPHEN 325 MG TAB PO ONE (16:45)
[2024-06-07] MEDS ORDERED: Ketorolac Tromethamine 15 MG/ML VIAL IV SCH (20:58)
[2024-06-07] MEDS ORDERED: ceFAZolin sodium/sodium chlor 10 ML IV SCH (22:00)
[2024-06-07] MEDS ORDERED: RISPERIDONE 0.5 MG TAB PO SCH (22:00)
[2024-06-07] MEDS ORDERED: Budesonide/Formoterol Fumarate 160/4.5 inhaler INH SCH (22:00)
[2024-06-07] MEDS ORDERED: Memantine Hydrochloride 10 MG TAB PO SCH (22:00)
[2024-06-07] MEDS ORDERED: Amitriptyline Hydrochloride 25 MG TAB PO SCH (22:00)
[2024-06-07 23:46] VITALS: BP 110/60; BP 124/62
[2024-06-08 04:00] VITALS: BP 141/63
[2024-06-08] MEDS ORDERED: OMEPRAZOLE 20 MG CAP PO SCH (06:00)
[2024-06-08 06:32] LABS: BASO % 0.6 % (0.0-1.0); EOS # 0.4 10*3/uL (0.0-0.4); HEMATOCRIT 30.7 % (37.0-47.0); LYMPH # 1.6 10*3/uL (1.3-4.4); LYMPH % 22.9 % (27.0-41.0); MEAN CELL VOLUME 81.9 fl (81.0-99.0); MEAN CORPUSCULAR HGB 24.5 pg (27.0-31.0); MEAN PLATELET VOLUME 8.5 fl (9.6-12.3); MONO # 1.1 10*3/uL (0.1-1.0); MONO % 15.2 % (3.0-9.0); NEUT # 3.9 10*3/uL (2.3-7.9); PLATELET COUNT AUTOMATED 190 10*3/uL (130-400); RED BLOOD COUNT 3.75 10*6/uL (4.10-5.10); RED CELL DISTRI WIDTH 17.7 % (0-14.5)
[2024-06-08 06:52] LABS: BUN 10 mg/dl (9-23); CHLORIDE 104 mmol/L (98-107); POTASSIUM 3.7 mmol/L (3.4-5.1)
[2024-06-08 08:19] VITALS: BP 159/75
[2024-06-08] MEDS ORDERED: ESCITALOPRAM OXALATE 10 MG TAB PO SCH (10:00)
[2024-06-08] MEDS ORDERED: Levothyroxine Sodium 25 MCG TAB PO SCH (10:00)
[2024-06-08] MEDS ORDERED: Enoxaparin Sodium 40 MG/0.4 ML SYR SC SCH (10:00)
[2024-06-08] MEDS ORDERED: Montelukast Sodium 10 MG TAB PO SCH (10:00)
[2024-06-08] MEDS ORDERED: ASPIRIN, CHEWABLE 81 MG TAB PO SCH (10:00)
[2024-06-08] MEDS ORDERED: METOPROLOL SUCCINATE XR 25 MG TAB PO SCH (10:00)
[2024-06-08] MEDS ORDERED: Losartan Potassium 25 MG TAB PO SCH (10:00)
[2024-06-08 19:47] VITALS: BP 145/53
[2024-06-08 20:10] VITALS: BP 155/77
[2024-06-08] MEDS ORDERED: ceFAZolin sodium 1 GM in SYRINGE INFUSION 10 ML IV SCH (22:00)
[2024-06-09] VITALS: BP 132/71
[2024-06-09 08:00] VITALS: BP 136/69
[2024-06-09 12:00] VITALS: BP 108/60
[2024-06-09 16:00] VITALS: BP 104/72
[2024-06-09 20:00] VITALS: BP 111/71
[2024-06-10] VITALS: BP 105/69
[2024-06-10 08:00] VITALS: BP 119/69
[2024-06-10 12:00] VITALS: BP 116/66
[2024-06-10] MEDS ORDERED: HYDROmorphONE Hydrochloride 0.5 MG/0.5 ML SYRINGE IV ONE (14:35)
[2024-06-10 16:00] VITALS: BP 112/68
[2024-06-10 20:00] VITALS: BP 100/75
[2024-06-10] MEDS ORDERED: Polyethylene Glycol 3350 17 GM PACKET PO PRN (20:50)
[2024-06-10] MEDS ORDERED: GABAPENTIN 100 MG CAP PO SCH (22:00)
[2024-06-10] MEDS ORDERED: ACETAMINOPHEN 500 MG TAB PO SCH (22:00)
[2024-06-11] VITALS: BP 102/76
[2024-06-11 05:54] LABS: BUN 12 mg/dl (9-23); CHLORIDE 104 mmol/L (98-107); POTASSIUM 4.2 mmol/L (3.4-5.1)
[2024-06-11 06:16] LABS: BASO # 0.1 10*3/uL (0.0-0.1); BASO % 0.7 % (0.0-1.0); EOS # 0.8 10*3/uL (0.0-0.4); EOS % 9.4 % (1.0-4.0); HEMATOCRIT 30.8 % (37.0-47.0); LYMPH # 1.6 10*3/uL (1.3-4.4); LYMPH % 19.6 % (27.0-41.0); MEAN CORPUSCULAR HGB 24.3 pg (27.0-31.0); MEAN CORPUSCULAR HGB CONC 29.2 g/dl (33.0-37.0); MEAN PLATELET VOLUME 9.2 fl (9.6-12.3); MONO # 1.2 10*3/uL (0.1-1.0); MONO % 13.9 % (3.0-9.0); NEUT # 4.6 10*3/uL (2.3-7.9); NEUT % 55.9 % (47.0-73.0); PLATELET COUNT AUTOMATED 223 10*3/uL (130-400); RED BLOOD COUNT 3.71 10*6/uL (4.10-5.10); WHITE BLOOD COUNT 8.3 10*3/uL (4.8-10.8)
[2024-06-11 06:24] VITALS: BP 113/48
[2024-06-11 08:00] VITALS: BP 131/60
[2024-06-11 12:00] VITALS: BP 109/64
[2024-06-11 16:00] VITALS: BP 109/64
[2024-06-11 20:00] VITALS: BP 102/47
[2024-06-12] VITALS (10 sets, daily range): BP systolic 115–161; BP diastolic 51–93
[2024-06-12] MEDS ORDERED: HEEL PROTECTOR DEVICE ONE (01:33)
[2024-06-12 06:52] LABS: BUN 12 mg/dl (9-23); CHLORIDE 104 mmol/L (98-107); POTASSIUM 4.1 mmol/L (3.4-5.1)
[2024-06-12] MEDS ORDERED: HYDROmorphONE Hydrochloride 0.5 MG/0.5 ML SYRINGE IV ONE (10:45)
[2024-06-12] MEDS ORDERED: Lactated Ringer's Solution 1,000 ML IV ONE (15:29)
[2024-06-12] MEDS ORDERED: BUPIVACAINE 0.5% 30 ML IV ONE (15:50)
[2024-06-12] MEDS ORDERED: MUPIROCIN 15 GM TUBE ONE (16:05)
[2024-06-12] MEDS ORDERED: Ketorolac Tromethamine 30 MG/ML VIAL IV ONE (18:43)
[2024-06-12] MEDS ORDERED: fentaNYL CITRATE 100 MCG/2 ML VIAL IV ONE (18:43)
[2024-06-12] MEDS ORDERED: Ondansetron Hydrochloride 4 MG/2 ML VIAL IV ONE (18:43)
[2024-06-12] MEDS ORDERED: Dexamethasone Sodium Phospha 20 MG/5 ML VIAL IV ONE (18:43)
[2024-06-12] MEDS ORDERED: PROPOFOL 200 MG/20 ML VIAL IV ONE (18:43)
[2024-06-12] MEDS ORDERED: SEVOFLURANE 250 ML BOT INH ONE (18:43)
[2024-06-12] MEDS ORDERED: Acetaminophen/Hydrocodone ES 7.5/325 tablet PO PRN (21:55)
[2024-06-12] MEDS ORDERED: Ondansetron Hydrochloride 4 MG/2 ML VIAL IV PRN (21:55)
[2024-06-13] VITALS: BP 111/80
[2024-06-13 06:43] LABS: BUN 17 mg/dl (9-23); CHLORIDE 102 mmol/L (98-107); POTASSIUM 4.6 mmol/L (3.4-5.1)
[2024-06-13 08:00] VITALS: BP 110/48
[2024-06-13] MEDS ORDERED: HYDROmorphONE Hydrochloride 0.5 MG/0.5 ML SYRINGE IV ONE (10:20)
[2024-06-13 12:00] VITALS: BP 133/60
[2024-06-13 16:00] VITALS: BP 141/71
[2024-06-13 20:00] VITALS: BP 122/50
[2024-06-14] VITALS: BP 99/60
[2024-06-14 08:00] VITALS: BP 136/80
[2024-06-14] MEDS ORDERED: HYDROCODONE-AC1 EAC2 PO (10:28)
[2024-06-14] MEDS ORDERED: ENOXAPARIN40 MG/0.2 SC (10:28)
[2024-06-14] MEDS ORDERED: MIRALAX POWDER17 G1 PO (10:28)
[2024-06-14] MEDS ORDERED: GABAPENTIN100 M2 PO (10:28)
== END 2024-06-14 13:06 | DRG 492 ==
LOC: ED 10:09 → 4E 16:02 → EDHOLD 16:02 → 4E 16:23
PROVIDERS: Internal Medicine; ADMIT Internal Medicine; ATTEND Internal Medicine
PROC: 2W3QX1Z Immobilization of Right Lower Leg using Splint (ICD-10-PCS; 2024-06-07)
PROC: 0QSJ04Z Reposition Right Fibula with Internal Fixation Device, Open Approach (ICD-10-PCS; principal; 2024-06-12)
PROC: 0QSG04Z Reposition Right Tibia with Internal Fixation Device, Open Approach (ICD-10-PCS; 2024-06-12)
DX: S82.851A Displaced trimalleolar fracture of right lower leg, initial encounter for closed fracture (principal); J96.00 Acute respiratory failure, unspecified whether with hypoxia or hypercapnia; I10 Essential (primary) hypertension; G30.1 Alzheimer's disease with late onset; J44.9 Chronic obstructive pulmonary disease, unspecified; J84.10 Pulmonary fibrosis, unspecified; W18.30XA Fall on same level, unspecified, initial encounter; F02.80 Dementia in other diseases classified elsewhere, unspecified severity, without behavioral disturbance, psychotic disturbance, mood disturbance, and anxiety; E03.9 Hypothyroidism, unspecified; Y93.89 Activity, other specified; Z88.0 Allergy status to penicillin; Y92.89 Other specified places as the place of occurrence of the external cause; Y99.8 Other external cause status

== ENCOUNTER 2024-06-17 16:31 | Emergency (ER) | payer MEDICARE ==
[~2024-06-17] VITALS: Wt 78.7 kg
[~2024-06-17 16:31] MED LIST changes: +ENOXAPARIN40 MG/0.2 SC; +GABAPENTIN100 M2 PO; +HYDROCODONE-AC1 EAC2 PO; +MIRALAX POWDER17 G1 PO
[2024-06-17] MEDS ORDERED: SODIUM CHLORIDE 0.9% 1,000 ML IV ONE (16:35)
[2024-06-17] MEDS ORDERED: LORazepam 1 MG TAB PO ONE (16:35)
[2024-06-17 16:55] LABS: BASO % 0.3 % (0.0-1.0); EOS # 0.4 10*3/uL (0.0-0.4); EOS % 3.6 % (1.0-4.0); HEMATOCRIT 25.9 % (37.0-47.0); LYMPH # 1.4 10*3/uL (1.3-4.4); LYMPH % 13.6 % (27.0-41.0); MEAN CELL VOLUME 83.8 fl (81.0-99.0); MEAN CORPUSCULAR HGB 24.3 pg (27.0-31.0); MEAN PLATELET VOLUME 8.4 fl (9.6-12.3); MONO # 1.2 10*3/uL (0.1-1.0); MONO % 11.7 % (3.0-9.0); NEUT # 6.9 10*3/uL (2.3-7.9); NEUT % 69.3 % (47.0-73.0); NUCLEATED RED BLOOD CELL 0.2 % (0.0-0.0); PLATELET COUNT AUTOMATED 309 10*3/uL (130-400); RED BLOOD COUNT 3.09 10*6/uL (4.10-5.10); RED CELL DISTRI WIDTH 18.5 % (0-14.5); WHITE BLOOD COUNT 9.9 10*3/uL (4.8-10.8)
[2024-06-17 17:16] LABS: BUN 10 mg/dl (9-23); CHLORIDE 100 mmol/L (98-107); POTASSIUM 3.5 mmol/L (3.4-5.1)
[2024-06-17 17:41] LABS: BILIRUBIN Negative (Negative); BLOOD Trace-Lysed (Negative); CLARITY Clear (Clear); COLOR Yellow (Yellow); GLUCOSE Negative (Negative); KETONE Negative (Negative); LEUKO ESTERASE Trace (Negative); NITRITE Negative (Negative); PH 6.5 (4.5-8.0); SPECIFIC GRAVITY 1.015 (1.001-1.030)
[2024-06-17 17:51] LABS: BACTERIA 1+; MUCOUS 1+
[2024-06-17] MEDS ORDERED: ATIVAN1 MG PO (18:14)
== END 2024-06-17 18:34 | disposition home or self-care (01) ==
LOC: ED 16:31
PROVIDERS: Emergency Medicine
DX: R25.1 Tremor, unspecified (principal); D64.9 Anemia, unspecified; J44.9 Chronic obstructive pulmonary disease, unspecified; I10 Essential (primary) hypertension; E78.5 Hyperlipidemia, unspecified; K21.9 Gastro-esophageal reflux disease without esophagitis; M19.90 Unspecified osteoarthritis, unspecified site; Z88.0 Allergy status to penicillin; Z98.890 Other specified postprocedural states

== ENCOUNTER 2024-07-15 07:01 | Emergency (ER) | payer MEDICARE ==
[~2024-07-15] VITALS: Ht 162.5 cm; Wt 78.5 kg
[~2024-07-15 07:01] MED LIST changes: +ATIVAN1 MG PO
[2024-07-15] MEDS ORDERED: CLONAZEPAM0.5 M2 PO (07:34)
[2024-07-15] MEDS ORDERED: DEPAKOTE125 M1 PO (07:36)
[2024-07-15] MEDS ORDERED: DEPAKOTE500 M2 PO (07:36)
[2024-07-15] MEDS ORDERED: HYDROXYZINE PAM50 MG PO (07:39)
[2024-07-15] MEDS ORDERED: REMERON15 M2 PO (07:41)
[2024-07-15] MEDS ORDERED: RIVASTIGMINE TAR3 M1 PO (07:43)
[2024-07-15 08:27] LABS: BASO # 0.1 10*3/uL (0.0-0.1); BASO % 0.8 % (0.0-1.0); EOS # 0.4 10*3/uL (0.0-0.4); EOS % 6.3 % (1.0-4.0); HEMATOCRIT 34.1 % (37.0-47.0); LYMPH # 1.4 10*3/uL (1.3-4.4); LYMPH % 23.5 % (27.0-41.0); MEAN CORPUSCULAR HGB 23.4 pg (27.0-31.0); MEAN CORPUSCULAR HGB CONC 28.2 g/dl (33.0-37.0); MEAN PLATELET VOLUME 8.9 fl (9.6-12.3); MONO % 16.7 % (3.0-9.0); NEUT # 3.1 10*3/uL (2.3-7.9); NEUT % 51.5 % (47.0-73.0); PLATELET COUNT AUTOMATED 305 10*3/uL (130-400); RED BLOOD COUNT 4.11 10*6/uL (4.10-5.10); RED CELL DISTRI WIDTH 16.8 % (0-14.5)
[2024-07-15 08:50] LABS: BUN 12 mg/dl (9-23); CHLORIDE 104 mmol/L (98-107)
[2024-07-15 08:53] LABS: BILIRUBIN Negative (Negative); BLOOD Negative (Negative); CLARITY Cloudy (Clear); COLOR Yellow (Yellow); GLUCOSE Negative (Negative); KETONE Trace (Negative); LEUKO ESTERASE Trace (Negative); NITRITE Negative (Negative); PH 5.5 (4.5-8.0)
[2024-07-15 09:03] LABS: MUCOUS 1+; YEAST 1+
[2024-07-15 09:04] LABS: BACTERIA TRACE
[2024-07-15] MEDS ORDERED: Ceftriaxone Sodium 1 GM/10 ML SYR IV ONE (09:35)
[2024-07-15] MEDS ORDERED: CIPRO500 MG PO (09:54)
[2024-07-15] MEDS ORDERED: Water, Sterile 10 ML VIAL ONE (09:55)
== END 2024-07-15 10:05 ==
LOC: ED 07:01
PROVIDERS: Emergency Medicine
DX: N39.0 Urinary tract infection, site not specified (principal); R53.1 Weakness; F03.90 Unspecified dementia, unspecified severity, without behavioral disturbance, psychotic disturbance, mood disturbance, and anxiety; F32.A Depression, unspecified; K21.9 Gastro-esophageal reflux disease without esophagitis; I10 Essential (primary) hypertension; M19.90 Unspecified osteoarthritis, unspecified site; D64.9 Anemia, unspecified; E03.9 Hypothyroidism, unspecified; J44.9 Chronic obstructive pulmonary disease, unspecified; Z88.0 Allergy status to penicillin; Z98.890 Other specified postprocedural states

== ENCOUNTER → 2025-02-14 | Outpatient (CLI) | payer MEDICARE ==
[~2025-02-14] MED LIST changes: +ADULT TUSS100 MG/51 PO; +APAP325 MG PO; +BARIUM SULFATE 98% 340 GM BOT PO ONE; +BISACODYL10 MG R; +BREO ELLIPTA 11 EACH INH; +CIPRO500 MG PO; +CLONAZEPAM0.5 M2 PO; +DEPAKOTE SPRIN125 MG PO; +DEPAKOTE125 M1 PO; +DEPAKOTE500 M2 PO; +DIPHENHYDR50 MG/1 ML IM; +FLOMAX0.4 MG PO; +GLYCOLAX POWDER; +HYDROXYZINE PAM50 MG PO; +Ipratropium Brom3 ML INH; +LEVOFLOXACIN750 M2 PO; +MEGESTROL400 MG/10 PO; +MEMANTINE HCL10 MG PO; +MILK OF MA400 MG/53 PO; +POTASSIUM CHLO20 ME3 PO; +REMERON15 M2 PO; +VIBRA-TAB100 MG PO
== END | disposition home or self-care (01) ==
LOC: RAD/SH 01-11 09:00
PROVIDERS: ATTEND Internal Medicine
DX: R13.10 Dysphagia, unspecified (principal); R05.9 Cough, unspecified

== ENCOUNTER 2025-06-07 06:35 | Inpatient (IN) | payer OTHER ==
[~2025-06-07] VITALS: Ht 160 cm; Wt 73.9 kg
[~2025-06-07 06:35] MED LIST changes: -BARIUM SULFATE 98% 340 GM BOT PO ONE
[2025-06-07 06:42] VITALS: BP 121/96
[2025-06-07] MEDS ORDERED: IOHEXOL 300 MG/ML 100 ML VIAL IV ONE (07:25)
[2025-06-07 07:33] LABS: MEAN CELL VOLUME 100.7 fl (81.0-99.0); MEAN CORPUSCULAR HGB 31.1 pg (27.0-31.0); MEAN PLATELET VOLUME 9.0 fl (9.6-12.3); NUCLEATED RED BLOOD CELL 0.0 10*3/uL (0.0-0.0); NUCLEATED RED BLOOD CELL 0.2 % (0.0-0.0); PLATELET COUNT AUTOMATED 147 10*3/uL (130-400); RED CELL DISTRI WIDTH 15.9 % (0-14.5)
[2025-06-07 07:34] LABS: MANUAL DIFF REFLEX YES
[2025-06-07 07:57] LABS: PLATELET SUFFICIENCY NORMAL (NORMAL)
[2025-06-07 07:59] LABS: BUN 15 mg/dl (9-23); SGPT/ALT 27 U/L (5-49)
[2025-06-07 08:24] LABS: BILIRUBIN Negative (Negative); BLOOD 2+ (Negative); CLARITY Turbid (Clear); COLOR Yellow (Yellow); KETONE Negative (Negative); LEUKO ESTERASE 3+ (Negative); NITRITE Positive (Negative); PH 6.5 (4.5-8.0); SPECIFIC GRAVITY 1.020 (1.001-1.030); UROBILINOGEN 1.0 E.U./dl (0.0-1.0)
[2025-06-07] MEDS ORDERED: SODIUM CHLORIDE 0.9% 1,000 ML IV ONE (08:25)
[2025-06-07 08:47] LABS: BACTERIA 4+; RBC TNTC rbc/hpf (0-2); WBC TNTC wbc/hpf (0-5)
[2025-06-07 09:06] VITALS: BP 118/72
[2025-06-07] MEDS ORDERED: SINEMET 25-1001 EACH PO (11:43)
[2025-06-07] MEDS ORDERED: ELIQUIS5 M1 PO (11:44)
[2025-06-07] MEDS ORDERED: BENZTROPINE ME0.5 MG PO (11:44)
[2025-06-07] MEDS ORDERED: CVS TUSSIN CF237 ML PO (11:45)
[2025-06-07 12:42] VITALS: BP 117/85
[2025-06-07 17:38] VITALS: BP 131/85
[2025-06-07] MEDS ORDERED: SODIUM CHLORIDE 0.9% 1,000 ML IV SCH (17:50)
[2025-06-07] MEDS ORDERED: ACETAMINOPHEN 325 MG TAB PO PRN (18:00)
[2025-06-07] MEDS ORDERED: APIXABAN 5 MG TAB PO SCH (18:00)
[2025-06-07] MEDS ORDERED: Albuterol Sulf/Ipratropium 3 ML VIAL NEB PRN (18:00)
[2025-06-07] MEDS ORDERED: BISACODYL 10 MG SUPP R PRN (18:05)
[2025-06-07] MEDS ORDERED: Menthol/Zinc Oxide 4 GM THIN T PRN (19:30)
[2025-06-07 20:00] VITALS: BP 110/72
[2025-06-07] MEDS ORDERED: Carbidopa/Levodopa 25/100MG 1 TAB TAB PO SCH (21:00)
[2025-06-07] MEDS ORDERED: Mirtazapine 15 MG TAB PO SCH (22:00)
[2025-06-08] VITALS: BP 145/71
[2025-06-08 04:44] LABS: MANUAL DIFF REFLEX YES; MEAN CELL VOLUME 98.5 fl (81.0-99.0); MEAN CORPUSCULAR HGB 31.3 pg (27.0-31.0); MEAN PLATELET VOLUME 8.9 fl (9.6-12.3); NUCLEATED RED BLOOD CELL 0.0 10*3/uL (0.0-0.0); NUCLEATED RED BLOOD CELL 0.2 % (0.0-0.0); PLATELET COUNT AUTOMATED 150 10*3/uL (130-400); RED CELL DISTRI WIDTH 15.8 % (0-14.5)
[2025-06-08 05:04] LABS: PLATELET SUFFICIENCY NORMAL (NORMAL)
[2025-06-08 05:07] LABS: BUN 16 mg/dl (9-23)
[2025-06-08 08:00] VITALS: BP 135/88
[2025-06-08] MEDS ORDERED: OMEPRAZOLE 20 MG CAP PO SCH (10:00)
[2025-06-08] MEDS ORDERED: BENZTROPINE MESYLATE 0.5 MG TAB PO SCH (10:00)
[2025-06-08] MEDS ORDERED: POTASSIUM CHLORIDE 20 MEQ TAB PO SCH (10:00)
[2025-06-08] MEDS ORDERED: METOPROLOL SUCCINATE XR 25 MG TAB PO SCH (10:00)
[2025-06-08 12:00] VITALS: BP 117/83
== END 2025-06-08 13:22 | DRG 690 ==
LOC: ED 06:35 → EDHOLD 10:06 → 5E 10:06
PROVIDERS: Internal Medicine; ADMIT Internal Medicine; ATTEND Internal Medicine
DX: N39.0 Urinary tract infection, site not specified (principal); E87.20 Acidosis, unspecified; G30.1 Alzheimer's disease with late onset; F02.80 Dementia in other diseases classified elsewhere, unspecified severity, without behavioral disturbance, psychotic disturbance, mood disturbance, and anxiety; E03.9 Hypothyroidism, unspecified; I10 Essential (primary) hypertension; J44.9 Chronic obstructive pulmonary disease, unspecified; F41.1 Generalized anxiety disorder; Z88.0 Allergy status to penicillin; Z79.899 Other long term (current) drug therapy; Z79.01 Long term (current) use of anticoagulants; Z79.2 Long term (current) use of antibiotics